=== PATIENT | female | born 1940 | race African-American/Black ===

== ENCOUNTER 2018-09-22 17:30 | Inpatient (IN) | payer OTHER ==
[~2018-09-22] VITALS: Ht 165.1 cm; Wt 82.7 kg
[~2018-09-22 17:30] MED LIST: ALBUL MT; EPOE200014 IJ; LEVO137T32 MT; METO25TA6 MT; SEVE800T8 MT; WARF2TAB57 MT; WARF4TAB40 MT
[2018-09-22 18:54] LABS: MEAN CORPUSCULAR VOLUME 104.2 fL (81.0-99.0); RED BLOOD CELL COUNT 3.65 mill/uL (4.2-5.4); RED CELL DISTRIBUTION WIDTH 20.1 % (11.6-14.6)
[2018-09-22 18:58] LABS: CHLORIDE 105 mEq/L (98-107)
[2018-09-22 19:03] LABS: ETHANOL BLOOD < 10 mg/dL
[2018-09-22 19:04] LABS: INR 3.2; PROTHROMBIN TIME 31.3 sec (9.1-11.1)
[2018-09-22] MEDS ORDERED: LACTULOSE 20G/30ML UDC PO ONE (19:45)
[2018-09-22] MEDS ORDERED: LACTULOSE 300 ML in WATER FOR IRRIGATION,STERILE 700 ML IR ONE (20:00)
[2018-09-22] MEDS ORDERED: IPRATROPIUM/ALBUTEROL 0.5-3(2.5)MG/3ML NEB INH PRN (21:15)
[2018-09-22] MEDS ORDERED: DOCUSATE SODIUM 100MG CAPSULE PO PRN (21:15)
[2018-09-22] MEDS ORDERED: DEXTROSE 50% WATER 50ML SYRINGE IV PRN ×2 (21:15)
[2018-09-23] VITALS (11 sets, daily range): BP systolic 116–157; BP diastolic 57–86
[2018-09-23] MEDS ORDERED: LEVO150T8 PO (04:16)
[2018-09-23] MEDS ORDERED: METO-539 PO (04:16)
[2018-09-23] MEDS ORDERED: ACET12.53 PO (04:16)
[2018-09-23] MEDS ORDERED: BETA15OI TP (04:36)
[2018-09-23] MEDS ORDERED: ATROV INH (04:36)
[2018-09-23] MEDS ORDERED: AMLO10TA80 PO (04:36)
[2018-09-23] MEDS ORDERED: ATOR20TA65 PO (04:36)
[2018-09-23] MEDS ORDERED: CLOB15CR4 TP (04:36)
[2018-09-23] MEDS ORDERED: FERR325T6 MT (04:40)
[2018-09-23] MEDS ORDERED: NEPVIT PO (04:40)
[2018-09-23] MEDS ORDERED: TC025C15 TP (04:40)
[2018-09-23] MEDS ORDERED: POTA10TA11 PO (04:40)
[2018-09-23] MEDS ORDERED: LACT10SO6 PO (04:40)
[2018-09-23] MEDS ORDERED: FOLI-43 PO (04:40)
[2018-09-23] MEDS ORDERED: LEVOTHYROXINE SODIUM 137MCG TABLET PO SCH (06:50)
[2018-09-23] MEDS: INSULIN LISPRO 100 UNITS/ML SUBCUT SCH ×4 (07:20→21:00)
[2018-09-23] MEDS: BLOOD SUGAR DIAGNOSTIC STRIP TEST SCH ×4 (07:27→21:26)
[2018-09-23 08:40] LABS: BASOPHILS % 1.1 % (0.0-2.0); EOSINOPHILS % 1.7 % (0.0-5.0); HEMATOCRIT. 36.9 % (36.0-48.0); HEMOGLOBIN. 11.8 g/dL (12.0-16.0); LYMPHOCYTES % 13.7 % (20.0-50.0); MEAN CORPUSCULAR HEMOGLOBIN 33.2 pg (28.0-32.0); MEAN CORPUSCULAR VOLUME 103.7 fL (81.0-99.0); MEAN PLATELET VOLUME 11.5 fl (7.4-10.4); MONOCYTES % 11.1 % (2.0-8.0); NEUTROPHILS % 72.4 % (40.0-76.0); PLATELET 69 x1000/uL (130-400); RED BLOOD CELL COUNT 3.55 mill/uL (4.2-5.4); RED CELL DISTRIBUTION WIDTH 19.7 % (11.6-14.6)
[2018-09-23 08:56] LABS: INR 3.1; PARTIAL THROMBOPLASTIN TIME 68.3 sec (23.4-31.0); PROTHROMBIN TIME 30.1 sec (9.1-11.1)
[2018-09-23] MEDS ORDERED: ALBUTEROL 2MG/5ML ORAL SYR PO SCH (09:00)
[2018-09-23] MEDS ORDERED: POTASSIUM CHLORIDE 10MEQ TABLET SR PO SCH (09:00)
[2018-09-23] MEDS ORDERED: FERROUS SULFATE 325MG TABLET PO SCH (09:00)
[2018-09-23 09:02] LABS: PHOSPHORUS 3.5 mg/dL (2.5-4.9)
[2018-09-23] MEDS: PANTOPRAZOLE SODIUM 40 MG/VIAL IV SCH (09:42)
[2018-09-23] MEDS: LACTULOSE 20G/30ML UDC PO SCH ×3 (09:43→16:37)
[2018-09-23] MEDS: LEVOTHYROXINE SODIUM 150MCG TABLET PO SCH (09:51)
[2018-09-23] MEDS: FERROUS SULFATE 325MG TABLET PO SCH ×2 (09:51→16:37)
[2018-09-23] MEDS: FOLIC ACID/VITAMIN B COMP W-C TABLET PO SCH (09:51)
[2018-09-23] MEDS: ATORVASTATIN CALCIUM 20MG TABLET PO SCH (09:51)
[2018-09-23] MEDS: METOPROLOL TARTRATE 50MG TABLET PO SCH ×2 (10:06→20:58)
[2018-09-23] MEDS: AMLODIPINE 10MG TABLET PO SCH (10:06)
[2018-09-23] MEDS: SEVELAMER CARBONATE 800 MG TABLET PO SCH ×2 (13:05→16:37)
[2018-09-23] MEDS ORDERED: WARFARIN SODIUM 2MG TABLET PO SCH (13:30)
[2018-09-24] VITALS (12 sets, daily range): BP systolic 121–152; BP diastolic 51–77
[2018-09-24] MEDS: LEVOTHYROXINE SODIUM 150MCG TABLET PO SCH (05:26)
[2018-09-24] MEDS: BLOOD SUGAR DIAGNOSTIC STRIP TEST SCH ×4 (05:27→20:57)
[2018-09-24] MEDS: INSULIN LISPRO 100 UNITS/ML SUBCUT SCH ×4 (07:20→20:57)
[2018-09-24] MEDS ORDERED: DIPHENHYDRAMINE 25MG CAPSULE PO PRN (08:30)
[2018-09-24] MEDS: LACTULOSE 20G/30ML UDC PO SCH ×2 (09:00→17:00)
[2018-09-24] MEDS: FOLIC ACID/VITAMIN B COMP W-C TABLET PO SCH (11:29)
[2018-09-24] MEDS: SEVELAMER CARBONATE 800 MG TABLET PO SCH ×3 (11:29→18:03)
[2018-09-24] MEDS: PANTOPRAZOLE SODIUM 40 MG/VIAL IV SCH (11:29)
[2018-09-24] MEDS: METOPROLOL TARTRATE 50MG TABLET PO SCH ×2 (11:30→20:58)
[2018-09-24] MEDS: FERROUS SULFATE 325MG TABLET PO SCH ×2 (11:30→18:02)
[2018-09-24] MEDS: ATORVASTATIN CALCIUM 20MG TABLET PO SCH (11:30)
[2018-09-24] MEDS: AMLODIPINE 10MG TABLET PO SCH (11:44)
[2018-09-24 12:10] LABS: BASOPHILS % 1.1 % (0.0-2.0); EOSINOPHILS % 2.4 % (0.0-5.0); HEMATOCRIT. 34.8 % (36.0-48.0); HEMOGLOBIN. 11.4 g/dL (12.0-16.0); LYMPHOCYTES % 12.7 % (20.0-50.0); MEAN CORPUSCULAR HEMOGLOBIN 33.6 pg (28.0-32.0); MEAN CORPUSCULAR VOLUME 102.9 fL (81.0-99.0); MONOCYTES % 7.9 % (2.0-8.0); NEUTROPHILS % 75.9 % (40.0-76.0); PLATELET 68 x1000/uL (130-400); RED BLOOD CELL COUNT 3.38 mill/uL (4.2-5.4); RED CELL DISTRIBUTION WIDTH 19.6 % (11.6-14.6)
[2018-09-24 12:24] LABS: PHOSPHORUS 2.8 mg/dL (2.5-4.9)
[2018-09-24 12:25] LABS: INR 3.1; PROTHROMBIN TIME 30.2 sec (9.1-11.1)
[2018-09-24 12:28] LABS: T4 FREE 1.78 ng/dL (0.76-1.46)
[2018-09-24 12:43] LABS: CHLORIDE 108 mEq/L (98-107)
[2018-09-24] MEDS ORDERED: ACETAMINOPHEN 650MG/20.3ML UDC PO PRN (18:45)
== END 2018-09-24 21:20 | disposition short-term general hospital (02) | DRG 441 ==
LOC: ER 17:30 → ENRESERV 20:06 → 3WST 20:43 → EDBEDREQTM 20:51 → EDBEDREQ 20:51
PROVIDERS: ADMIT Family Medicine Adult Medicine; ATTEND Family Medicine Adult Medicine
DX: K72.90 Hepatic failure, unspecified without coma (principal); N18.6 End stage renal disease; E44.1 Mild protein-calorie malnutrition; R18.8 Other ascites; I12.0 Hypertensive chronic kidney disease with stage 5 chronic kidney disease or end stage renal disease; E03.9 Hypothyroidism, unspecified; I48.91 Unspecified atrial fibrillation; E11.22 Type 2 diabetes mellitus with diabetic chronic kidney disease; K80.20 Calculus of gallbladder without cholecystitis without obstruction; E11.40 Type 2 diabetes mellitus with diabetic neuropathy, unspecified; D17.9 Benign lipomatous neoplasm, unspecified; K74.60 Unspecified cirrhosis of liver; Z79.01 Long term (current) use of anticoagulants; Z82.49 Family history of ischemic heart disease and other diseases of the circulatory system; Z83.3 Family history of diabetes mellitus; Z99.2 Dependence on renal dialysis; Z88.2 Allergy status to sulfonamides; Z88.9 Allergy status to unspecified drugs, medicaments and biological substances; Z68.30 Body mass index [BMI] 30.0-30.9, adult; Z79.84 Long term (current) use of oral hypoglycemic drugs
CPT/HCPCS: 36415; 71045; 80048; 80076; 80307; 80320; 80329; 82140; 82962; 83735; 84100; 84439; 84443; 84481; 84484; 92610; 93005; 93970; 96365; 99291; C9113; A4315; G0480